=== PATIENT | female | born 1985 | race Caucasian/White ===

== ENCOUNTER 2016-03-25 10:50 | Emergency (ER) | payer MEDICAID ==
[~2016-03-25] VITALS: Ht 157.5 cm; Wt 59.0 kg
[2016-03-25 11:28] VITALS: Ht 157.5 cm; Wt 59.0 kg
[2016-03-25 12:46] LABS: URINE BLOOD (Dip) POC 2+ (NEGATIVE)
[2016-03-25 13:01] LABS: ADD UMIC YES; URINE BILIRUBIN (Dip) NEGATIVE (NEGATIVE); URINE BLOOD (Dip) 1+ (NEGATIVE); URINE COLOR LT. YELLOW (YELLOW); URINE GLUCOSE (Dip) NEGATIVE (NEGATIVE); URINE KETONES (Dip) NEGATIVE (NEGATIVE); URINE LEUKOCYTE ESTERASE (Dip) NEGATIVE (NEGATIVE); URINE NITRITE (Dip) NEGATIVE (NEGATIVE); URINE TOTAL PROTEIN (Dip) NEGATIVE (NEGATIVE); URINE UROBILINOGEN (Dip) 0.2 E.U./dL (0.1-1.0)
[2016-03-25 13:10] LABS: URINE RBCS 0-2 /HPF (0)
[2016-03-25 13:13] LABS: BASOPHILS % 0.4 % (0.0-2.0); EOSINOPHILS % 0.4 % (0.0-7.0); HEMATOCRIT 43.4 % (37.0-47.0); HEMOGLOBIN 14.8 g/dl (12.0-16.0); LYMPHOCYTES # 2.2 10^3/ul (0.8-2.9); LYMPHOCYTES % 20.2 % (15.0-51.0); MEAN CORPUSCULAR HEMOGLOBIN 31.2 pg (29.0-33.0); MEAN CORPUSCULAR HGB CONC 34.1 g/dl (32.0-37.0); MEAN CORPUSCULAR VOLUME 91.4 fl (82.0-101.0); MEAN PLATELET VOLUME 8.9 fl (7.4-10.4); MONOCYTE # 0.8 10^3/ul (0.3-0.9); MONOCYTES % 7.7 % (0.0-11.0); NEUTROPHIL # 7.8 10^3/ul (1.6-7.5); NEUTROPHILS % 71.3 % (39.0-77.0); PLATELET COUNT 235 10^3/UL (140-440); RED BLOOD COUNT 4.75 10^6/ul (4.20-5.40); RED CELL DISTRIBUTION WIDTH 12.7 % (11.5-14.5); UNCORRECTED WBC 10.9 10^3/ul (4.8-10.8); WHITE BLOOD COUNT 10.9 10^3/ul (4.8-10.8)
[2016-03-25 13:15] LABS: CONDITION 1
[2016-03-25 13:17] LABS: ALBUMIN 4.9 g/dl (3.3-4.9)
[2016-03-25 13:18] LABS: POTASSIUM 3.4 mmol/L (3.5-5.1)
[2016-03-25 13:20] LABS: ALBUMIN/GLOBULIN RATIO 1.32; BILIRUBIN,INDIRECT 0.3 mg/dl (0-1.1); BILIRUBIN,TOTAL 0.3 mg/dl (0.2-1.3); CREATININE 0.57 mg/dl (0.44-1.00); TOTAL PROTEIN 8.6 g/dl (6.1-8.1)
[2016-03-25 13:21] LABS: CALCIUM 9.6 mg/dl (8.4-10.2)
--- NOTE | 2016-03-25 13:23 | RADRPT ---
PROCEDURE: US Pelvis Non-OB CLINICAL INDICATION: Abdominal pain TECHNIQUE: Images were taken during real time trans pelvic and endovaginal interrogation. Color-fl ow and Doppler interrogation of the ovaries was performed. COMPARISON: None FINDINGS: Uterus: The uterus is retroverted but normal in size with the sagittal diameter measuring 6.7 cm an d the cross diameter 3.9 x 3.3 cm. The endometrial stripe measures 0.5 cm until AP diameter. Ovaries: The right ovary measures 4.1 x 2.6 x 2.0 cm and appears unremarkable. The left ovary measures 4.0 x 2.8 x 2.2 cm and appears unremarkable. Vascular flow is demonstrated in each ovary on Doppler. Adnexa: No adnexal mass is identified. Free intraperitoneal fluid: None visualized. IMPRESSION: 1. Normal-sized empty retroverted uterus with a 0.5 cm endometrial stripe. 2. Normal ovaries with vascular flow demonstrated in each. 3. No adnexal mass or free fluid is evident. Physician Yogesh Date Time Electronically viewed and signed by Physician Yogesh on 03/25/2016 13:23 /
[2016-03-25] MEDS ORDERED: NORE1TAB12 PO (13:32)
--- NOTE | 2016-03-25 16:47 | ERD ---
DATE OF SERVICE: HISTORY OF PRESENT ILLNESS: The patient is a 30-year-old female coming in complaining of vaginal bl eeding for the last 3 days. Patient states she has had vaginal bleeding for the last 15 days. She has positive clots. She is not . G0, . She used Tylenol yesterday. No medication to day. She has some diffuse pelvic cramping. PAST MEDICAL HISTORY: Denies medical problems. ALLERGIES TO MEDICATIONS: DENIES. SURGICAL HISTORY: Denies. SOCIAL HISTORY: Denies. IMMUNIZATIONS: Up to date on vaccinations. REVIEW OF SYSTEMS: A 12-point review of systems was done. Refer to HPI for positives, all other sy stems negative. PHYSICAL EXAMINATION VITAL SIGNS: Temperature is 97.9, pulse 78, blood pressure is 147/78, respiratory 18, O2 saturation 100% on room air. Pain intensity of 4/10. GENERAL: The patient is well-appearing, well-nourished, no acute distress. HEENT: Atraumatic. Conjunctivae are pink. Pupils equal, round, and reactive to light. There is no s cleral icterus. Tympanic membranes clear bilaterally. Oropharynx clear. No nystagmus or photophobia . CHEST: Clear to auscultation bilaterally. There are no rales, wheezes or rhonchi. HEART: Regular rate and rhythm. No murmurs, clicks, rubs or gallops. No S3 or S4. ABDOMEN: Soft, nontender and nondistended. Good bowel sounds. No rebound or guarding. No gross shanthi tonitis. No gross organomegaly or masses. No Rodriguez sign or McBurney point tenderness. BACK: No midline or flank tenderness. SKIN: There is no apparent rash or petechia. The skin is warm and dry. EMERGENCY ROOM COURSE: The patient had blood work done in the ER. CBC and hemoglobin was stable at 14.8. CMP was within normal limits. Patient's urine showed 2+ hemoglobin, negative leukocytes, neg ative nitrites, negative white blood cells. Patient had a pelvic ultrasound which showed: 1. Normal size empty retroverted uterus with 0.5 cm endometrial stripe. 2. Normal ovaries with vascular flow demonstrated in each. 3. No adnexal mass or free fluid evident. DIAGNOSIS: Metromenorrhagia. MEDICAL DECISION MAKING: I have low suspicion for hemodynamic instability. The patient's hemoglobi n is stable at 14.8 and I have low suspicion for ectopic as patient's urine was negative, and ultrasound was within normal limits. I have low suspicion for pelvic emergency exam i s within normal limits and ultrasounds are within normal limits with normal blood work. DISCHARGE: The patient is discharged stable. Patient given prescription for Loestrin control pills and told to follow up with primary care within 1 to 2 days for reevaluation. Patient was lexi d if symptoms progress or worsen to return to the ER. All other questions answered at time of disch arge. Discharge summary given at the time of departure. Patient understood and complied with plan. Dictated By: TARA DONOHUE for MALU WEINBERG/ELISA Conf#: [id number] DID#: [id number]
== END 2016-03-25 14:29 | disposition home or self-care (01) ==
LOC: FTE 10:50
DX: N92.1 Excessive and frequent menstruation with irregular cycle (principal)
CPT/HCPCS: 76830; 76856; 80053; 81001; 83690; 85025; Z7502; 81003